=== PATIENT | female | born 1950 | race Caucasian/White ===

== ENCOUNTER 2020-12-12 11:26 | Emergency (ER) | payer MEDICARE, SELFPAY ==
[2020-12-12 11:32] VITALS: BP 143/73; PULSE 81; RESP 16; TEMP 36.7; O2SAT 98; BMI 29.7
--- NOTE | 2020-12-12 11:37 | ED_ITS ---
HPI - Fall General: Chief Complaint: Fall Stated Complaint: RIB PAIN, POST FALL Time Seen by Provider: 12/12/20 11:37 History of Present Illness: HPI Narrative: Ms. Guo is a 70-year-old lady with significant past medical history of hypertension, prediabetes, colon cancer status post therapy and ostomy who presents the emergency department due to fall. She reports helping unload a moving truck today when she lost her balance and fell against a deck primarily on the right side of her ribs. She immediately had pain and felt like the wind was knocked out of her. No head strike, neck pain, or loss of consciousness. No preceding lightheadedness, dizziness, shortness of breath, or chest pain. Current pain is aching and occasionally sharp, moderate in intensity, worse with deep inspiration. No other changes in health, specific exacerbating or alleviating factors, or other injuries reported. Review of Systems General: Reports: 10 or more systems reviewed and unremarkable except in HPI and below Physical Exam Narrative: EXAM NARRATIVE: GENERAL/CONSTITUTIONAL - well-appearing. No acute distress. Eyes - PERRL, no conjunctival injection ENMT - Atraumatic external nose and ears. Moist mucous membranes NECK - supple. trachea midline CARDIOVASCULAR - regular rate and rhythm. CHEST - tenderness palpation of right posterior lateral ribs RESPIRATORY -clear to auscultation bilaterally. No retractions or accessory muscle use. ABDOMEN/GI - Nontender/Nondistended. Ostomy present. MSK - Extremities without obvious deformity or tenderness to palpation. No C, T, L-spine tenderness to palpation. SKIN - Warm, Dry NEURO - alert and appropriately oriented. Moves all extremities equally. Course ED course: - Patient was seen and evaluated by me at bedside -Vital signs obtained - Initial evaluation notable for no acute distress, nontoxic appearance. Tenderness palpation of right lateral rib cage -Analgesia ordered - Imaging notable for nondisplaced rib fracture - Based on patient history, evaluation, labs, and imaging as interpreted the most likely cause of the patient's condition is rib fracture - The results of ED evaluation were discussed with the patient including prescriptions and/or symptomatic cares (if applicable) including appropriate and responsible use, followup plan, and return precautions. The patient verbalized understanding and felt safe for discharge. - Patient discharged in satisfactory condition. Vital Signs: Vital signs: Vital Signs Temperature 98.2 F 12/12/20 11:48 Pulse Rate 79 10/11/21 11:48 Respiratory Rate 18 12/12/20 11:48 Blood Pressure 132/81 12/12/20 13:34 Pulse Oximetry 97 12/12/20 11:48 MDM - Fall Medical Records: Attestation: I reviewed the patient's medical records. Lab Data: Attestation: I reviewed the patient's lab results. Discharge Plan Discharge Patient Disposition: Home Clinical Impression: Fall, Closed rib fracture Condition: Stable Prescriptions: New oxycodone 5 mg tablet 5 mg PO Q4H PRN (Reason: pain) Qty: 20 RF: 0 Discharge Orders: Discharge ED (Routine); Ordered 12/12/20 Ordered By: Hakan Cash Discharge Diet: Usual diet Discharge Activity: Resume usual activity and Increase activity as tolerated Patient Instructions: Rib Fracture (ED), Fall Prevention (ED), Opioid Safety Activity Restrictions/Additional Instructions: Thank you for visiting the emergency department. You were seen and evaluated for fall. You were found to have a rib fracture. Rib fractures are painful and often require multimodal approach for pain control. You may take Tylenol and ibuprofen however please do not exceed the daily recommended dosage and please keep in mind that many namebrand medications contain the same active ingredients or class of active ingredients. Additionally you will be given a prescription for oxycodone. Do not combine this with sedating medications or other FOOD SERVICE CASHIER altering medications. This can make you constipated as discussed. Do not operate heavy machinery or drive while under the influence of oxycodone. Please follow-up with your primary care provider. Please use the incentive spirometer as instructed. Please return to the emergency department for shortness of breath, infectious symptoms, worsening or uncontrolled pain, or anything else that you are concerned about and feel needs emergency department evaluation. Coding Level of Care Code ED Sole Rounding Machine Operator for Marianne Teresa
--- NOTE | 2020-12-12 11:45 | XR_ITS ---
WS: [id number] RIGHT RIBS, MULTIPLE VIEWS WITH PA CHEST HISTORY: fall, posterior right lateral rib pain COMPARISON: None available. Lungs and mediastinum: Clear. No pneumothorax or pulmonary contusion. Ribs: Quality of the rib imaging is suboptimal. There is a nondisplaced fracture in the anterolateral moderate is probably the sixth rib on the RIGHT. XR/XR ribs RT mn 3V w [id number] IMPRESSION: 1. Nondisplaced anterolateral RIGHT sixth rib fracture. No additional fracture identified but the rib imaging is limited. 2. No pulmonary contusion or pneumothorax.
[2020-12-12 11:48] VITALS: BP 152/45; PULSE 79; RESP 18; TEMP 36.8; O2SAT 97
[2020-12-12] MEDS: acetaminophen 500 mg Tablet 1000 MG PO (12:20)
[2020-12-12] MEDS: ketorolac 30 mg/mL INJ 15 MG IM (12:21)
[2020-12-12 13:34] VITALS: BP 132/81
== END 2020-12-12 13:31 | disposition home or self-care (01) ==
PROVIDERS: Emergency Provider Emergency Medicine
DX: S22.31XA Fracture of one rib, right side, initial encounter for closed fracture (principal); I10 Essential (primary) hypertension; Z85.038 Personal history of other malignant neoplasm of large intestine; W19.XXXA Unspecified fall, initial encounter
CPT/HCPCS: 71101; 96372; 99283; J1885